=== PATIENT | female | born 1970 | race Caucasian/White ===

== ENCOUNTER 2016-08-08 06:33 | Day surgery (SDC) | payer BC ==
[~2016-08-08] VITALS: Ht 170.3 cm; Wt 80.9 kg
[2016-08-08] VITALS (8 sets, daily range): BP systolic 103–123; BP diastolic 72–85; PULSE 81–97; TEMP 97.5–97.8
[~2016-08-08 06:33] MED LIST: BACTRIM DS 8001 TAB PO; CEFTIN250 MG PO; ESTRACE2 MG PO; KEFLEX500 MG PO; MACROBID100 MG PO; MOTRIN 800800 MG/TAB PO; NORCO 325 MG-51 TAB PO; PERCOCET 325 MG1 TA2 PO; PERCOCET 5/321 UDTAB PO; PHENERGAN 25 TA25 MG PO; PHENERGAN25 MG RC; SEPTRA DS 800 M1 TAB PO; ZOFRAN 4MG T4 MG/TAB PO; ZOFRAN4 M1 PO; [UNRECOGNIZED DRUG - OTHER] PO; antibiotic; estrogen
[2016-08-08 07:12] LABS: HEMATOCRIT 40.8 % (37.0-47.0); HEMOGLOBIN 14.4 g/dl (12.5-16.0); MEAN CELL VOLUME 85 fl (80.0-100.0); MEAN CORPUSCULAR HEMOGLOBIN 30 pg (27.0-31.0); MEAN CORPUSCULAR HGB CONC 35 g/dl (33.0-37.0); MEAN PLATELET VOLUME 10.3 fl (7.4-10.4); PLATELET COUNT 215 K/mm3 (130-400); RED BLOOD COUNT 4.83 M/mm3 (4.10-5.30); WHITE BLOOD COUNT 13.8 K/mm3 (4.8-10.8)
[2016-08-08] MEDS ORDERED: ASPIRIN 81M81 MG/TA2 PO (07:15)
[2016-08-08] MEDS ORDERED: PAMELOR 25MG25 MG PO (07:16)
[2016-08-08] MEDS ORDERED: PRIL40 PO (07:17)
[2016-08-08] MEDS ORDERED: LIPITOR20 MG PO (07:17)
[2016-08-08 07:20] LABS: PROTHROMBIN TIME 11.6 SECONDS (9.7-12.8)
[2016-08-08 07:36] LABS: CALCIUM 9.3 mg/dL (8.4-10.2); CREATININE, serum 0.75 mg/dL (0.52-1.25); POTASSIUM 4.4 mmol/L (3.4-5.0)
== END 2016-08-08 11:54 | disposition home or self-care (01) ==
LOC: COL.CAR 06:33
PROVIDERS: Internal Medicine Interventional Cardiology
DX: I25.10 Atherosclerotic heart disease of native coronary artery without angina pectoris (principal); R07.89 Other chest pain; Z79.82 Long term (current) use of aspirin; Z79.899 Other long term (current) drug therapy
CPT/HCPCS: C1769; C1887; C1894; J1200; J2250; J2930; J3010; Q9967

== ENCOUNTER 2016-10-24 10:42 | Day surgery (SDC) | payer BC ==
[2016-10-24] VITALS (7 sets, daily range): BP systolic 97–111; BP diastolic 66–85; PULSE 75–83; TEMP 97.6–97.9
[~2016-10-24] VITALS: Ht 167.6 cm; Wt 78.2 kg
[~2016-10-24 10:42] MED LIST changes: +ASPIRIN 81M81 MG/TA2 PO; +LIPITOR20 MG PO; +PAMELOR 25MG25 MG PO; +PRIL40 PO
[2016-10-24] MEDS ORDERED: LOPRESSOR 225 MG/TAB PO (11:45)
[2016-10-24] MEDS ORDERED: NITROSTAT0.4 MG/TAB SL (11:46)
== END 2016-10-24 14:15 | disposition home or self-care (01) ==
LOC: SDCO 10:42
DX: K22.70 Barrett's esophagus without dysplasia (principal); K21.9 Gastro-esophageal reflux disease without esophagitis; E11.9 Type 2 diabetes mellitus without complications; A04.9 Bacterial intestinal infection, unspecified; K62.5 Hemorrhage of anus and rectum; F17.210 Nicotine dependence, cigarettes, uncomplicated; Z80.0 Family history of malignant neoplasm of digestive organs; Z90.49 Acquired absence of other specified parts of digestive tract; Z90.710 Acquired absence of both cervix and uterus; Z98.51 Tubal ligation status
CPT/HCPCS: J2250; J3010

== ENCOUNTER 2017-10-09 09:21 | Day surgery (SDC) | payer OTHER ==
[~2017-10-09] VITALS: Ht 170.2 cm; Wt 72.2 kg
[2017-10-09] VITALS (7 sets, daily range): BP systolic 98–116; BP diastolic 72–84; PULSE 79–90; TEMP 97.6–98.1
[~2017-10-09 09:21] MED LIST changes: +LOPRESSOR 225 MG/TAB PO; +NITROSTAT0.4 MG/TAB SL
== END 2017-10-09 14:02 | disposition home or self-care (01) ==
LOC: SDCO 09:21
DX: R19.7 Diarrhea, unspecified (principal); R19.5 Other fecal abnormalities; K64.1 Second degree hemorrhoids; K22.70 Barrett's esophagus without dysplasia; K21.9 Gastro-esophageal reflux disease without esophagitis; R13.10 Dysphagia, unspecified
CPT/HCPCS: J2250; J3010; J7030

== ENCOUNTER → 2018-06-04 | Outpatient (CLI) | payer OTHER | LOC: COL.RAD 07:47 | DX: K21.9 Gastro-esophageal reflux disease without esophagitis (principal) | CPT/HCPCS: A9541 ==

== ENCOUNTER 2018-06-11 14:49 | Day surgery (SDC) | payer OTHER ==
[~2018-06-11] VITALS: Ht 170.2 cm; Wt 69.5 kg
[2018-06-11 15:24] VITALS: BP 112/83; PULSE 88; TEMP 97.4
[2018-06-11 15:55] VITALS: BP 115/82; PULSE 82; TEMP 98.1
[2018-06-11 16:10] VITALS: BP 117/78; PULSE 80
--- NOTE | 2018-06-11 16:22 | NUR ---
patient arrives from the OR via cart to bay 3. VS started and WNL. alert and oriented. call light within reach. Physician at bedside to soeak with patient. given pudding abd soda. will continue to monitor.
[2018-06-11 16:25] VITALS: BP 116/80; PULSE 80; TEMP 98.2
[2018-06-11 16:40] VITALS: BP 118/76; PULSE 80
--- NOTE | 2018-06-11 16:50 | NUR ---
PATIENT DISCHARGED TO HOME AMBULATORY WITH Family. discharge instructions given, verbalized understanding. IV dc'd.
== END 2018-06-11 16:40 ==
LOC: SDCO 14:49
DX: K21.9 Gastro-esophageal reflux disease without esophagitis (principal); K22.70 Barrett's esophagus without dysplasia; Z88.5 Allergy status to narcotic agent; Z88.6 Allergy status to analgesic agent; E11.9 Type 2 diabetes mellitus without complications; Z80.0 Family history of malignant neoplasm of digestive organs; Z83.71 Family history of colonic polyps; Z83.79 Family history of other diseases of the digestive system; F17.210 Nicotine dependence, cigarettes, uncomplicated; Z90.49 Acquired absence of other specified parts of digestive tract; Z90.710 Acquired absence of both cervix and uterus
CPT/HCPCS: J2250; J3010; J7030

== ENCOUNTER 2020-05-08 11:28 | Day surgery (SDC) | payer OTHER ==
[2020-05-08] VITALS (7 sets, daily range): BP systolic 97–121; BP diastolic 64–71; PULSE 84–108; TEMP 97.8–98.4
[2020-05-09 00:21] VITALS: BP 103/62; PULSE 107; TEMP 97.7
[2020-05-09 04:07] VITALS: BP 99/64; PULSE 94; TEMP 97.9
[2020-05-09 07:34] VITALS: BP 110/65; PULSE 93; TEMP 97.8
[2020-05-09] MEDS ORDERED: PERCOCET 325 MG1 TA2 PO (09:21)
== END 2020-05-09 10:27 | disposition home or self-care (01) ==
LOC: SDCO 11:28 → SURG 15:45 → SDCO 05-09 10:27
DX: K21.00 Gastro-esophageal reflux disease with esophagitis, without bleeding (principal); K22.70 Barrett's esophagus without dysplasia; Z79.82 Long term (current) use of aspirin; Z79.52 Long term (current) use of systemic steroids; Z90.49 Acquired absence of other specified parts of digestive tract; Z90.710 Acquired absence of both cervix and uterus; F17.210 Nicotine dependence, cigarettes, uncomplicated; Z88.5 Allergy status to narcotic agent; Z88.8 Allergy status to other drugs, medicaments and biological substances; E78.5 Hyperlipidemia, unspecified; F43.10 Post-traumatic stress disorder, unspecified; D64.9 Anemia, unspecified
CPT/HCPCS: OP; J0690; J1100; J1885; J2250; J2405; J2704; J3010; J7120